=== PATIENT | male | born 1965 | race American Indian/Alaskan Native ===

== ENCOUNTER 2018-10-05 14:02 | Emergency (ER) | payer OTHER ==
[2018-10-05] MEDS ORDERED: NORCO 10/325 PO ONE (14:48)
--- NOTE | 2018-10-05 14:48 | Emergency Department Report ---
Blank Doc - Documentation Documentation: This is a 72-year-old male that presents with right hand lac. Denies being UTD with tetanus. This initial assessment/diagnostic orders/clinical plan/treatment(s) is/are subject to change based on patient's health status, clinical progression and re- assessment by fellow clinical providers in the ED. Further treatment and workup at subsequent clinical providers discretion. Patient/guardians urged not to elope from the ED as their condition may be serious if not clinically assessed and managed. Initial orders include: 1- Patient sent to [facility] for further evaluation and treatment 2- tetanus
--- NOTE | 2018-10-05 16:11 | XRay Report ---
PROCEDURE: XR HAND 3+V RT TECHNIQUE: Frontal, lateral, oblique views right hand HISTORY: lac r/o fracture COMPARISONS: None FINDINGS: Visualization of detail of the soft tissues on the dorsal lateral aspect of the thumb is limited by o verlying dressing material. There appears to be soft tissue swelling on the dorsal lateral aspect of the thumb at the level of th e metacarpal phalangeal joint. There is degenerative change of the thumb carpometacarpal joint with joint space loss and osteophyte formation. There is a small focus of increased density lateral to the distal metaphysis of the thumb metacarpal that is only demonstrated on the oblique view. Whether or not this represents artifact or a small avu lsion fracture fragment is unclear. There is evidence of degenerative change of the interphalangeal joints of the second through fifth di gits and of the metacarpal phalangeal joints of the thumb and third digit. IMPRESSION: 1. Visualization of detail of the dorsal lateral aspect of the thumb at the level of the metacarpopha langeal joint is limited by overlying dressing material. 2. Appearance of soft tissue swelling of the dorsal lateral aspect of the thumb at the level of the m etacarpal phalangeal joint. 3. Possible small avulsion fracture fragment adjacent to the distal aspect of the thumb metacarpal. V isualization of detail is limited by artifact created by dressing material. Differential diagnosis in cludes artifact. 4. Degenerative joint change. This document is electronically signed by Ele Pisano MD., October 05 2018 04:09:24 PM ET
[2018-10-05] MEDS ORDERED: MORPHINE IV ONE (18:02)
[2018-10-05] MEDS ORDERED: ANCEF/NS 1 GM/50 ML 1 GM/50 ML BAG IV ONE (18:02)
[2018-10-05] MEDS ORDERED: BOOSTRIX IM ONE (18:03)
[2018-10-05] MEDS ORDERED: NACL 0.9% 500 ML IR ONE (18:04)
--- NOTE | 2018-10-05 19:34 | Emergency Department Report ---
- General Chief Complaint: Wound/Laceration Stated Complaint: HAND INJURY Time Seen by Provider: 10/05/18 14:46 Source: patient Mode of arrival: Ambulatory Limitations: No Limitations - History of Present Illness Initial Comments: 53-year-old right-handed male sustained laceration to right thumb while using a chainsaw at work. Patient denies numbness or tingling. Unknown if tetanus is up-to-date. -: hour(s) (3) Extremity Location: Right: Hand Place: work Patient Tetanus UTD: No Context: accidental Associated Symptoms: pain. denies: loss of feeling/numbness, unable to move injured part Treatments Prior to Arrival: bandage - Related Data Previous Rx's Medication Instructions Recorded Last Taken Type HYDROcodone/ACETAMINOPHEN [[place] 1 each PO Q6HR PRN #10 tablet 10/05/18 Unknown Rx 5-325 Tablet] cephALEXin [Keflex] 500 mg PO Q12HR #20 cap 10/05/18 Unknown Rx Allergies Allergy/AdvReac Type Severity Reaction Status Date / Time No Known Allergies Allergy Verified 10/05/18 18:06 ED Review of Systems ROS: Stated complaint: HAND INJURY Other details as noted in HPI Comment: All other systems reviewed and negative Musculoskeletal: as per HPI Neurological: denies: paresthesias ED Past Medical Hx - Past Medical History Previous Medical History?: No - Surgical History Past Surgical History?: No - Social History Smoking Status: Current Every Day Smoker Substance Use Type: None - Medications Home Medications: Home Medications Medication Instructions Recorded Confirmed Last Taken Type HYDROcodone/ACETAMINOPHEN [[place] 1 each PO Q6HR PRN #10 tablet 10/05/18 Unknown Rx 5-325 Tablet] cephALEXin [Keflex] 500 mg PO Q12HR #20 cap 10/05/18 Unknown Rx ED Physical Exam - General Limitations: No Limitations General appearance: alert, in no apparent distress - Head Head exam: Present: atraumatic, normocephalic - Eye Eye exam: Present: normal appearance - ENT ENT exam: Present: mucous membranes moist - Neck Neck exam: Present: normal inspection - Respiratory Respiratory exam: Present: normal lung sounds bilaterally. Absent: respiratory distress - Cardiovascular Cardiovascular Exam: Present: regular rate, normal rhythm - GI/Abdominal GI/Abdominal exam: Absent: distended - Extremities Exam Extremities exam: Present: other (4 cm wound present over the dorsal aspect of the carpometacarpal joint of the right thumb into the joint, with no obvious t endon or bone exposed; pt able to flex and extend the thumb; sensation intact) ED Course Vital Signs 10/05/18 10/05/18 10/05/18 16:20 16:31 16:45 Blood Pressure 150/83 151/93 O2 Sat by Pulse 100 99 100 Oximetry 10/05/18 10/05/18 10/05/18 17:00 17:15 17:30 Blood Pressure 131/86 139/84 138/84 O2 Sat by Pulse 99 98 98 Oximetry 10/05/18 10/05/18 10/05/18 17:45 18:00 18:15 Blood Pressure 143/87 145/92 158/90 O2 Sat by Pulse 100 99 99 Oximetry 10/05/18 10/05/18 10/05/18 18:31 18:45 19:00 Blood Pressure 158/90 158/90 133/83 O2 Sat by Pulse 98 99 97 Oximetry 10/05/18 10/05/18 10/05/18 19:15 19:30 19:45 Blood Pressure 135/87 142/84 142/87 O2 Sat by Pulse 98 96 96 Oximetry 10/05/18 10/05/18 10/05/18 20:01 20:15 20:30 Blood Pressure 135/87 138/88 160/88 O2 Sat by Pulse 97 96 97 Oximetry - Consultations Consultation #1: 10/05/18 19:34 Spoke w/ Dr Walker. States pt can f/u in his office. ED Medical Decision Making - Radiology Data Radiology results: report reviewed, image reviewed - Medical Decision Making 53 yo M w/ chainsaw injury to dorsal aspect of right thumb, over the carpometacarpal joint. Wound irrigated with copious amounts of normal saline and betadine. Wound explored, no foreign bodies seen. Pt able to flex and extend thumb, no sensory loss. Due to mangled appearance of wound, there is no true laceration to repair, skin is avulsed from the edges. Spoke w. Dr Walker, states no need for admission. Can f/u in office. Wound dressed in xeroform gauze and 4x4s. Velcro thumb spica splint placed on pt. Advised urgent follow- up with ortho. Return precautions given. Prescriptions given for keflex and pain meds. - Differential Diagnosis laceration, fracture, nerve injury, tendon injury Critical care attestation.: If time is entered above; I have spent that time in minutes in the direct care of this critically ill patient, excluding procedure time. ED Disposition Clinical Impression: Avulsion fracture of thumb, Laceration of thumb, right Disposition: - TO HOME OR SELFCARE Is pt being admited?: No Condition: Stable Instructions: Laceration (ED), Thumb Fracture (ED) Prescriptions: cephALEXin [Keflex] 500 mg PO Q12HR #20 cap HYDROcodone/ACETAMINOPHEN [[place] 5-325 Tablet] 1 each PO Q6HR PRN #10 tablet PRN Reason: pain Referrals: JOHNNY WALKER MD [Staff Physician] - 24 Hours Time of Disposition: 20:30
[2018-10-05 20:55] VITALS: BP 160/88
== END 2018-10-05 20:55 | disposition home or self-care (01) ==
LOC: EDBD → ED 14:02
DX: S62.291A Other fracture of first metacarpal bone, right hand, initial encounter for closed fracture (principal); W45.8XXA Other foreign body or object entering through skin, initial encounter; Y93.89 Activity, other specified; Y92.89 Other specified places as the place of occurrence of the external cause; Y99.8 Other external cause status
CPT/HCPCS: 29125; 73130; 90471; 90715; 96365; 96375; 99284; J0690; J2270